=== PATIENT | female | born 1980 | race Asian ===

== ENCOUNTER 2020-10-13 09:26 | Emergency (ER) | payer OTHER, SELFPAY ==
[2020-10-13 10:57] VITALS: BP 120/72; PULSE 79; RESP 18; TEMP 36.8; O2SAT 98; BMI 21.2
[2020-10-13] MEDS: 0.9 % Sodium Chloride 1,000 ML 999 ML IVCONT (11:45)
[2020-10-13 11:51] LABS: MANUAL DIFF FLAG NO
--- NOTE | 2020-10-13 11:52 | PC.NURSE ---
patient a&ox3, iv inserted, labs drawn, covid swab obtained, pt ambulated to bathroom-urine obtained, ivf hung per order, vss, will continue to monitor.
[2020-10-13 11:53] LABS: Glucose Urine UA NEG (NEG); Leukocyte Esterase Urine 2+ (NEG); Nitrite Urine NEG (NEG); UACC Culture Trigger YES; Urine Blood TRACE (NEG); Urine Ketones NEG (NEG); Urine Protein NEG (NEG-TRACE)
[2020-10-13 11:54] LABS: Appearance Urine HAZY; Color Urine STRAW
[2020-10-13 11:59] LABS: Basophils Percent Auto 0.8 % (0-2); Eosinophils Absolute Auto 0.1 X10*3/uL (0.0-0.4); Hematocrit 34.1 % (37-47); Hemoglobin 10.3 g/dl (12.0-16.0); Imm Gran Abs Auto 0.01 X10*3/uL (0.00-0.03); Imm Gran Pct Auto 0.2 % (0.0-0.4); Lymphocytes Absolute Auto 1.4 X10*3/uL (1.2-4.9); Mean Corpuscular HGB Conc 30.2 g/dl (31.0-35.0); Mean Corpuscular Hemoglobin 21.5 pg (27.0-33.0); Monocytes Absolute Auto 0.5 X10*3/uL (0.1-1.2); Monocytes Percent Auto 10.4 % (2-11); Neutrophils Absolute Auto 2.9 X10*3/uL (2.0-8.3); Neutrophils Percent Auto 58.6 % (45-73); Platelet Count 249 X10*3/uL (160-400); Red Cell Distribution Width 16.9 % (11.0-16.0); White Blood Count 4.9 X10*3/uL (4.8-10.8)
--- NOTE | 2020-10-13 12:00 | ED.GENADULT ---
HPI - General Adult General Chief complaint: General Medical Stated complaint: weakness Time Seen by Provider: 10/13/20 11:07 Source: patient Mode of arrival: ambulatory Limitations: no limitations History of Present Illness HPI narrative: 40 y/o female presenting with nausea, intermittent vomiting and diarrhea for the the last 1 week. She also reports low grade fevers at home, headaches and dizziness. She has intermittent LLQ cramping pain. She denies blood in her stool. She denies chance of . LMP 1 month ago. No known sick contacts. Works from home, no exposure to COVID-19. complaint: N/V/D Onset (ago): week(s) (1) Location: head and abdomen Radiation: non-radiation Severity: moderate Quality: aching Pain Consistency: intermittent Exacerbating factors: eating Associated symptoms: fever/chills, headaches, loss of appetite, malaise and weakness Treatments prior to arrival: none Related Data Previous Rx's Medication Instructions Recorded cefuroxime axetil 250 mg PO BID #10 tab 10/13/20 ondansetron HCl [Zofran] 4 mg PO Q8H PRN #10 tab 10/13/20 Allergies Allergy/AdvReac Type Severity Reaction Status Date / Time No Known Allergies Allergy Verified 10/13/20 10:57 Review of Systems Review of Systems: Constitutional: + Fever, No Chills ENT/Mouth: No sore throat Cardiovascular: No Chest Pain, No SOB Respiratory: No Cough, No Sputum Gastrointestinal: + Nausea, + Vomiting, No Diarrhea, No abdominal Pain, No Hematochezia, No Melena Genitourinary: No Dysuria, No Urinary Frequency, No Hematuria Musculoskeletal: No joint pain, No Myalgias Skin: No Skin Lesions, No rash Neuro: No Weakness, No Numbness, + Dizziness, + Headache Heme/Lymph: No Bruising, No Lymphadenopathy PMFSH Past Medical History Medical History (Updated 10/13/20 @ 12:56 by MARI Sosa) No significant past medical history Social History Social History Alcohol intake: never Smoking Status: Never smoker Use of substances other than those prescribed or required for medical reasons: No Advance Directives: No Advance Directives Information Provided: No Physical Exam Vital Signs: Vital Signs: Last Vital Signs Temp 98.3 F 10/13/20 10:57 Pulse 79 10/13/20 10:57 Resp 18 10/13/20 10:57 BP 120/72 10/13/20 10:57 Pulse Ox 98 10/13/20 10:57 Body Mass Index 21.2 Appearance: Alert. Oriented X3. No acute distress. Eyes: Pupils equal, round and reactive to light. ENT: Pharynx normal. Neck: Normal inspection. Neck supple. CVS: Normal heart rate and rhythm. Pulses normal. Respiratory: No respiratory distress. Breath sounds normal. Abdomen: Soft with mild LLQ tenderness to deep palpation. hyperactive BS x4. Skin: Skin warm and dry. Normal skin color. Normal skin turgor. No rashes. Extremities: No lower extremity edema. Neuro: Oriented X 3. No motor deficit. No sensory deficit. Course Course Course Narrative: 40 y/o presenting with 1 week of N/V/D and intermittent LLQ pain. Minimal tenderness on exam. Low suspicion for diverticulitis. She appears well. VSS. Will check labs, urine, test and COVID swab. Will hydrate with IVF. Reevaluation(s) Reevaluation #1: UA positive for infection - will treat with dose of Rocephin while awaiting other lab work. Not septic. No leukocytosis, tachycardia or fever. Reevaluation #2: Lab workup unremarkable aside from +UA. Feels improved after IVF. Will treat UTI with Ceftin. Stable for d/c. Warning signs discussed to prompt return to ER. Medical Decision Making Lab Data Result diagrams: 10/13/20 11:44 10/13/20 11:44 Labs: Lab Results 10/13/20 10/13/20 10/13/20 Range/Units 11:44 11:44 11:44 WBC 4.9 (4.8-10.8) X10*3/uL RBC 4.80 (4.20-5.50) X10*6/uL Hgb 10.3 L (12.0-16.0) g/dl Hct 34.1 L (37-47) % MCV 71.0 L (80-98) fL MCH 21.5 L (27.0-33.0) pg MCHC 30.2 L (31.0-35.0) g/dl RDW 16.9 H (11.0-16.0) % Plt Count 249 (160-400) X10*3/uL MPV Not Reportable Immature Gran % (Auto) 0.2 (0.0-0.4) % Neut % (Auto) 58.6 (45-73) % Lymph % (Auto) 29.0 (20-40) % [place] % (Auto) 10.4 (2-11) % Eos % (Auto) 1.0 (0-4) % Baso % (Auto) 0.8 (0-2) % Lymph # (Auto) 1.4 (1.2-4.9) X10*3/uL [place] # (Auto) 0.5 (0.1-1.2) X10*3/uL Eos # (Auto) 0.1 (0.0-0.4) X10*3/uL Baso # (Auto) 0.0 (0.0-0.2) X10*3/uL Abs Immat Gran (auto) 0.01 (0.00-0.03) X10*3/uL Absolute Neuts (auto) 2.9 (2.0-8.3) X10*3/uL Absolute Nucleated RBC 0.000 (0.0-0.012) X10*3/uL Nucleated RBC % (auto) 0.0 (0.0-0.2) /100WBC Hold Blue Top SEE NOTE Sodium 139 (135-145) mmol/L Potassium 4.0 (3.3-5.1) mmol/l Chloride 106 (96-108) mmol/L Carbon Dioxide 26 (22-29) mmol/L Anion Gap 11 L (12-20) BUN 13 (9-16) mg/dL Creatinine 0.74 (0.5-1.4) mg/dL Estim Creat Clear Calc 83.6 Estimated GFR > 60 Random Glucose 82 (60-115) mg/dL Calcium 9.1 (8.4-10.2) mg/dL Magnesium 2.4 (1.6-2.6) mg/dL Total Bilirubin 0.3 (0.0-1.0) mg/dL Direct Bilirubin < 0.2 (0.0-0.5) mg/dL AST 19 (5-31) U/L ALT 19 (0-31) U/L Alkaline Phosphatase 61 (39-117) U/L Total Protein 7.8 (6.5-8.0) g/dL Albumin 4.6 (3.5-5.0) g/dL Lipase 48 (8-78) U/L Urine Color Urine Appearance Urine pH (5.0-8.0) Ur Specific [place] (1.005-1.025) Urine Protein (NEG-TRACE) MG/DL Urine Glucose (UA) (NEG) MG/DL Urine Ketones (NEG) MG/DL Urine Blood (NEG) Urine Nitrite (NEG) Ur Leukocyte Esterase (NEG) Urine RBC (0) /HPF Urine WBC (0-4) /HPF Ur Squamous Epith Cells /LPF Urine Bacteria /LPF Urine Test (NEGATIVE) Coronavirus (PCR) (Negative) Influenza Type A (PCR) (Negative) Influenza Type B (PCR) (Negative) RSV RNA Qual (PCR) (Negative) 10/13/20 10/13/20 Range/Units 11:44 11:44 WBC (4.8-10.8) X10*3/uL RBC (4.20-5.50) X10*6/uL Hgb (12.0-16.0) g/dl Hct (37-47) % MCV (80-98) fL MCH (27.0-33.0) pg MCHC (31.0-35.0) g/dl RDW (11.0-16.0) % Plt Count (160-400) X10*3/uL MPV Immature Gran % (Auto) (0.0-0.4) % Neut % (Auto) (45-73) % Lymph % (Auto) (20-40) % [place] % (Auto) (2-11) % Eos % (Auto) (0-4) % Baso % (Auto) (0-2) % Lymph # (Auto) (1.2-4.9) X10*3/uL [place] # (Auto) (0.1-1.2) X10*3/uL Eos # (Auto) (0.0-0.4) X10*3/uL Baso # (Auto) (0.0-0.2) X10*3/uL Abs Immat Gran (auto) (0.00-0.03) X10*3/uL Absolute Neuts (auto) (2.0-8.3) X10*3/uL Absolute Nucleated RBC (0.0-0.012) X10*3/uL Nucleated RBC % (auto) (0.0-0.2) /100WBC Hold Blue Top Sodium (135-145) mmol/L Potassium (3.3-5.1) mmol/l Chloride (96-108) mmol/L Carbon Dioxide (22-29) mmol/L Anion Gap (12-20) BUN (9-16) mg/dL Creatinine (0.5-1.4) mg/dL Estim Creat Clear Calc Estimated GFR Random Glucose (60-115) mg/dL Calcium (8.4-10.2) mg/dL Magnesium (1.6-2.6) mg/dL Total Bilirubin (0.0-1.0) mg/dL Direct Bilirubin (0.0-0.5) mg/dL AST (5-31) U/L ALT (0-31) U/L Alkaline Phosphatase (39-117) U/L Total Protein (6.5-8.0) g/dL Albumin (3.5-5.0) g/dL Lipase (8-78) U/L Urine Color STRAW Urine Appearance HAZY Urine pH 7.0 (5.0-8.0) Ur Specific [place] 1.010 (1.005-1.025) Urine Protein NEG (NEG-TRACE) MG/DL Urine Glucose (UA) NEG (NEG) MG/DL Urine Ketones NEG (NEG) MG/DL Urine Blood TRACE (NEG) Urine Nitrite NEG (NEG) Ur Leukocyte Esterase 2+ H (NEG) Urine RBC 1-4 (0) /HPF Urine WBC 10-14 H (0-4) /HPF Ur Squamous Epith Cells 2+ /LPF Urine Bacteria 1+ /LPF Urine Test NEGATIVE (NEGATIVE) Coronavirus (PCR) NEGATIVE (Negative) Influenza Type A (PCR) NEGATIVE (Negative) Influenza Type B (PCR) NEGATIVE (Negative) RSV RNA Qual (PCR) NEGATIVE (Negative) Discharge Plan Discharge Clinical Impression: UTI (urinary tract infection) Qualifiers: Urinary tract infection type: acute cystitis Hematuria presence: without hematuria Qualified Code(s): N30.00 - Acute cystitis without hematuria Patient Disposition: Home, Self-Care Instructions: Urinary Tract Infection in Women (ED) Additional Instructions: Your lab workup today was unremarkable today. Your urine test is consistent with infection and you are being started on antibiotics for this. Take the prescribed nausea medication as need. Stay hydrated, drink plenty of water. Follow up with your doctor next week. If you develop worsening pain, worsening nausea and vomiting come back to the ER for further evaluation. Prescriptions: New cefuroxime axetil 250 mg tablet 250 mg PO BID Qty: 10 RF: 0 ondansetron HCl [Zofran] 4 mg tablet 4 mg PO Q8H PRN (Reason: nausea and vomiting) Qty: 10 RF: 0 Stand Alone Forms: Work/School Release
[2020-10-13 12:09] LABS: Bacteria Urine 1+ /LPF; Squamous Epithelial Cell Urine 2+ /LPF
[2020-10-13 12:25] LABS: UPreg QC Valid YES; Urine Pregnancy NEGATIVE (NEGATIVE)
[2020-10-13 12:27] LABS: Alanine Aminotransferase 19 U/L (0-31); Albumin Level 4.6 g/dL (3.5-5.0); Alkaline Phosphatase 61 U/L (39-117); Anion Gap 11 (12-20); Aspartate Amino Transferase 19 U/L (5-31); Bilirubin Direct < 0.2 mg/dL (0.0-0.5); Bilirubin Total 0.3 mg/dL (0.0-1.0); Blood Urea Nitrogen 13 mg/dL (9-16); Calcium 9.1 mg/dL (8.4-10.2); Carbon Dioxide 26 mmol/L (22-29); Chloride 106 mmol/L (96-108); Creatinine Clr Calc Pharmacy 83.6; Estimated Glomerular Filt Rate > 60; Glucose Random 82 mg/dL (60-115); Lipase 48 U/L (8-78); Magnesium 2.4 mg/dL (1.6-2.6); Sodium 139 mmol/L (135-145); Total Protein 7.8 g/dL (6.5-8.0)
[2020-10-13] MEDS: cefTRIAXone sodium 1 GM in 0.9 % Sodium Chloride 50 ML IV (12:28)
--- NOTE | 2020-10-13 12:28 | PC.NURSE ---
iv antibiotics given per order
[2020-10-13 12:31] LABS: Influenza A PCR NEGATIVE (Negative); Influenza B PCR NEGATIVE (Negative); Resp Syncy Virus RNA Qual PCR NEGATIVE (Negative); SARS COV2 PCR INHOUSE NEGATIVE (Negative)
== END 2020-10-13 13:05 | disposition home or self-care (01) ==
PROVIDERS: Physician Assistant; Emergency Provider Internal Medicine; PCP Nurse Practitioner Family
DX: N30.00 Acute cystitis without hematuria (principal); Z20.822 Contact with and (suspected) exposure to COVID-19; R11.2 Nausea with vomiting, unspecified
CPT/HCPCS: 0241U; 36415; 80048; 80076; 81001; 81003; 81025; 83690; 83735; 85025; 87086; 96361; 96365; 99284; J0696

== ENCOUNTER 2021-06-27 18:36 | Emergency (ER) | payer OTHER, SELFPAY ==
--- NOTE | ~2021-06-27 | CT_ITS ---
EXAMINATION: CT ABDOMEN AND PELVIS WITH CONTRAST CLINICAL INFORMATION: Right lower quadrant/right flank pain. Fever. COMPARISON: None TECHNIQUE: Multidetector volumetric images were obtained from the superior aspect of the liver through the pubic symphysis following administration 85 mL of Omnipaque 350 intravenous contrast. Sagittal and coronal reformatted images were obtained on the technologist's workstation. Oral contrast: No This CT examination was performed using dose optimization techniques as appropriate, variously including the following: *Automated exposure control *Adjustment of mA and/or kV according to patient size (this includes techniques or standardized protocols for targeted exams where dose is matched to indication/reason for exam; i.e. extremities or head) *Use of iterative reconstruction technique DLP: 330 mGy-cm FINDINGS: LUNG BASES: The visualized lung bases are unremarkable. LIVER, GALLBLADDER, AND BILIARY TREE: The liver is normal in size, shape, and attenuation. No focal hepatic lesion or biliary ductal dilatation is present. The gallbladder is unremarkable with no evidence of radiopaque gallstones, gallbladder wall thickening, or obvious pericholecystic inflammatory changes. PANCREAS: Unremarkable. SPLEEN: Unremarkable. ADRENAL GLANDS: Unremarkable. KIDNEYS AND URETERS: The kidneys are normal in size, shape, and attenuation. No hydronephrosis, hydroureter, or calculi seen. No perinephric stranding. Left midpole simple renal cyst. No follow-up imaging recommended. BLADDER: Unremarkable. GASTROINTESTINAL TRACT: The stomach is unremarkable. Normal caliber small bowel. There is no ascites. Prominent wall thickening of the cecum. This involves the ascending colon as well. The appendix is identified, normal in size measuring 0.7 cm with small amount of internal gas. No inflammatory changes of the appendix. Mild inflammation along the course of the ascending colon. No free air. No significant free fluid. ABDOMINAL WALL: No significant hernia is appreciated. LYMPH NODES: Normal. VASCULAR: Unremarkable. PELVIC VISCERA: The uterus and adnexa are unremarkable. OSSEOUS STRUCTURES: No acute or suspicious osseous abnormality. CT/CT abdomen pelvis w con IMPRESSION: Normal appendix. Wall thickening with adjacent inflammation involving the right hemicolon, suggestive of colitis. Normal appearance of the kidneys.
[2021-06-27 19:49] VITALS: BP 99/66; PULSE 111; RESP 20; TEMP 39; O2SAT 99; BMI 19.1
[2021-06-27] MEDS: Acetaminophen 325 MG TABLET 650 MG PO (19:57)
[2021-06-27] MEDS: Ondansetron ODT 4 MG TAB.RAPDIS TRANSLINGU (19:57)
[2021-06-27 20:47] LABS: Influenza A PCR NEGATIVE (Negative); Influenza B PCR NEGATIVE (Negative); Resp Syncy Virus RNA Qual PCR NEGATIVE (Negative); SARS COV2 PCR INHOUSE NEGATIVE (Negative)
[2021-06-27 22:25] VITALS: TEMP 37.2
[2021-06-27 22:55] LABS: Basophils Percent Auto 0.2 % (0-2); Red Cell Distribution Width 17.8 % (11.0-16.0); SCAN SMEAR FLAG 1
[2021-06-27 22:57] LABS: Hematocrit 29.9 % (37-47); Imm Gran Abs Auto 0.05 X10*3/uL (0.00-0.03); Imm Gran Pct Auto 0.5 % (0.0-0.4); Lymphocytes Absolute Auto 1.2 X10*3/uL (1.2-4.9); Lymphocytes Percent Auto 12.2 % (20-40); Mean Corpuscular HGB Conc 30.1 g/dl (31.0-35.0); Mean Corpuscular Hemoglobin 19.9 pg (27.0-33.0); Mean Corpuscular Volume 66.2 fL (80-98); Monocytes Absolute Auto 0.6 X10*3/uL (0.1-1.2); Monocytes Percent Auto 5.7 % (2-11); Neutrophils Absolute Auto 7.9 X10*3/uL (2.0-8.3); Neutrophils Percent Auto 81.4 % (45-73); Platelet Count 197 X10*3/uL (160-400); Red Blood Count 4.52 X10*6/uL (4.20-5.50); White Blood Count 9.7 X10*3/uL (4.8-10.8)
[2021-06-27 22:59] LABS: MANUAL DIFF FLAG NO; PLT ABN DIST 1
[2021-06-27 23:07] LABS: Anion Gap 12 (12-20); Blood Urea Nitrogen 10 mg/dL (9-16); Calcium 9.4 mg/dL (8.4-10.2); Carbon Dioxide 23 mmol/L (22-29); Chloride 102 mmol/L (96-108); Creatinine Clr Calc Pharmacy 79.5; Estimated Glomerular Filt Rate > 60; Glucose Random 110 mg/dL (60-115); Potassium 3.9 mmol/L (3.3-5.1); Sodium 133 mmol/L (135-145)
--- NOTE | 2021-06-28 02:06 | ED_ITS ---
HPI - General Adult General Chief complaint: General Medical Stated complaint: high fever, back pains, abd pain Time Seen by Provider: 06/28/21 01:52 Source: patient Mode of arrival: ambulatory Limitations: no limitations History of Present Illness HPI narrative: 41-year-old female who presents emergency department for evaluation of fever, back pain and abdominal pain. Patient states that she got sick on Friday (3 days prior to evaluation). She states that she has had high fever with a maximum temperature of a 102? F. she states that she is having pain in her entire back with the right lower back being more severe than the left lower back. She is also complaining pain in her abdomen. She points to her p serena umbilical area when asked to localize the pain. The pain is a intermittent, sharp pain which is 8/10 at its worst. The patient has had associated nausea with no vomiting. She states that she has been moving her bowels frequently but these are formed stool in not diarrhea. She denied urinary frequency or dysuria. She denied chest pain, shortness of breath, dyspnea on exertion or cough. Related Data Previous Rx's Medication Instructions Recorded cefuroxime axetil 250 mg tablet 250 mg PO BID #10 tab 10/13/20 ondansetron HCl 4 mg tablet 4 mg PO Q8H PRN #10 tab 10/13/20 (Zofran) levofloxacin 500 mg tablet 500 mg PO DAILY 7 Days #7 tab 06/28/21 metronidazole 500 mg tablet 500 mg PO Q8H 7 Days #21 tab 06/28/21 Allergies Allergy/AdvReac Type Severity Reaction Status Date / Time No Known Allergies Allergy Verified 10/13/20 10:57 Review of Systems Review of Systems: Yes all other systems are reviewed and are negative [facility] Past Medical History [facility] Narrative: Past medical history: Pyelonephritis. Past surgical history: Bilateral tubal ligation 2013. Social history: She denies tobacco use. She denies alcohol use. She denies drug use. Medical History No significant past medical history Social History Social History Alcohol intake: never Patient Tobacco Use Status: Never used Tobacco Use of substances other than those prescribed or required for medical reasons: No Advance Directives: No Advance Directives Information Provided: No Patient : No Physical Exam Vital Signs: Vital Signs: Last Vital Signs Temp 98.9 F 06/27/21 22:25 Pulse 111 H 06/27/21 19:49 Resp 20 06/28/21 03:04 BP 99/66 06/27/21 19:49 Pulse Ox 99 06/27/21 19:49 Body Mass Index 19.1 Const: General: cooperative and no acute distress Orientation/consciousness: oriented to person and oriented to place Limitations: no limitations HENMT: Head: Yes normal to inspection, Yes normocephalic and Yes atraumatic Ears: external ears normal General nose exam: Normal external nose present Face and sinus: Yes normal facial exam Mouth: Normal oral and palatal mucosa present Throat: Yes posterior oropharynx normal Eyes: General: appearance normal, both eyes and all related structures Pupils: Equal, round and reactive pupils present Neck: Neck: Yes normal visual inspection, Yes no lymphadenopathy, Yes trachea midline and Yes supple Chest: Chest palpation & inspection: normal inspection of the chest and normal palpation of entire chest wall Resp: Effort & Inspection: normal respiratory effort and able to speak in complete sentences Auscultation: clear to auscultation bilaterally Cardio: Rate: regular rate Rhythm: regular rhythm Heart sounds: S1 normal heart sound present, S2 normal heart sound present and no murmurs GI: Inspection: Yes normal to inspection Palpation (GI): Soft to palpation, Tenderness to palpation present (GI) in the RLQ (Moderate) and suprapubicly (Moderate) and no guarding Auscultation: normal bowel sounds : General: Yes CVA tenderness on the right (Moderate) and on the left (Mild) Back/Spine/Pelvis: Back: CVA tenderness Skin: General skin exam: no rashes or lesions noted Neuro: General: oriented to person and oriented to place Cranial nerves: Yes CN's II-XII intact bilaterally and Yes Equal, round and reactive pupils present Cognition (Neuro): normal cognition Motor exam (neuro): 5/5 motor strength present throughout Extrem: General: Yes normal to inspection Psych: Appearance: grossly normal Speech and movement: Normal speech and movement present Affect: normal affect Attitude: cooperative Thought process: Normal thought process present Thought content: Normal thought c ontent present Course Course Course Narrative: 41-year-old female who presents emergency department for evaluation of fever, bilateral flank pain, lower abdominal times 3 days. Vital signs revealed a fever of 102.2? F orally. Patient was also tachycardic with a pulse of 111. Physical examination did reveal bilateral flank tenderness- right greater than left, suprapubic tenderness and right lower quadrant tenderness. Laboratory evaluation revealed normal white blood cell count of 9700, the patient has a microcytic anemia with an H&H of 9 and 29 with MCV of 66.2. Basic metabolic panel was normal. After my evaluation I did add a liver panel and lipase to the previous blood draw. I also ordered lactic acid and blood cultures x2. Urinalysis/microscopic was also ordered. Patient did have a bilateral tubal ligation but I will check a urine test as well. CT scan of the abdomen pelvis with IV contrast will also be obtained. Patient was ordered to get Toradol 30 mg IV and Zofran 4 mg IV. She also ordered to get normal saline x1 L. 0421: The patient got minimal relief with the above medications therefore she was ordered to get morphine 4 mg IV. The patient's laboratory evaluation revealed normal LFTs, non elevated lipase, non elevated lactate, urinalysis which was positive for blood and leukocyte esterase. Microscopic revealed 5-9 RBCs, 10-14 WBCs and 2+ urea. CT scan of the abdomen pelvis with IV contrast revealed a normal appendix. The patient had wall thickening with adjacent inflammation involving the right denise colon suggestive of colitis, the kidneys appeared normal. Given these findings, I suspect the patient does have a urinary tract infection but she may also have right sided colitis I did discuss this with the patient. The patient will be treated with Levaquin 500 mg once a day for 7 days and Flagyl 500 mg 3 times a day for 7 days. She was advised to take ibuprofen and Tylenol for pain. She was given her 1st dose of these 2 antibiotics here in the emergency department. She was discharged home. Medical Decision Making Lab Data Result diagrams: 06/27/21 22:30 06/27/21 22:30 Labs: Lab Results 06/27/21 06/27/21 06/27/21 Range/Units 19:55 22:30 22:30 WBC 9.7 (4.8-10.8) X10*3/uL RBC 4.52 (4.20-5.50) X10*6/uL Hgb 9.0 L (12.0-16.0) g/dl Hct 29.9 L (37-47) % MCV 66.2 L (80-98) fL MCH 19.9 L (27.0-33.0) pg MCHC 30.1 L (31.0-35.0) g/dl RDW 17.8 H (11.0-16.0) % Plt Count 197 (160-400) X10*3/uL MPV Not Reportable Immature Gran % (Auto) 0.5 H (0.0-0.4) % Neut % (Auto) 81.4 H (45-73) % Lymph % (Auto) 12.2 L (20-40) % [place] % (Auto) 5.7 (2-11) % Eos % (Auto) 0.0 (0-4) % Baso % (Auto) 0.2 (0-2) % Lymph # (Auto) 1.2 (1.2-4.9) X10*3/uL [place] # (Auto) 0.6 (0.1-1.2) X10*3/uL Eos # (Auto) 0.0 (0.0-0.4) X10*3/uL Baso # (Auto) 0.0 (0.0-0.2) X10*3/uL Abs Immat Gran (auto) 0.05 H (0.00-0.03) X10*3/uL Absolute Neuts (auto) 7.9 (2.0-8.3) X10*3/uL Absolute Nucleated RBC 0.000 (0.0-0.012) X10*3/uL Nucleated RBC % (auto) 0.0 (0.0-0.2) /100WBC Sodium 133 L (135-145) mmol/L Potassium 3.9 (3.3-5.1) mmol/L Chloride 102 (96-108) mmol/L Carbon Dioxide 23 (22-29) mmol/L Anion Gap 12 (12-20) BUN 10 (9-16) mg/dL Creatinine 0.72 (0.5-1.4) mg/dL Estim Creat Clear Calc 79.5 Estimated GFR > 60 Random Glucose 110 (60-115) mg/dL Lactic Acid (0.5-2.0) mmol/L Calcium 9.4 (8.4-10.2) mg/dL Total Bilirubin 0.3 (0.0-1.0) mg/dL Direct Bilirubin < 0.2 (0.0-0.5) mg/dL AST 23 (5-31) U/L ALT 27 (0-31) U/L Alkaline Phosphatase 63 (39-117) U/L Total Protein 7.4 (6.5-8.0) g/dL Albumin 4.3 (3.5-5.0) g/dL Lipase 24 (8-78) U/L Beta HCG, Quant < 2 mIU/mL Urine Color Urine Appearance Urine pH (5.0-8.0) Ur Specific [place] (1.005-1.025) Urine Protein (NEG-TRACE) MG/DL Urine Glucose (UA) (NEG) MG/DL Urine Ketones (NEG) MG/DL Urine Blood (NEG) Urine Nitrite (NEG) Ur Leukocyte Esterase (NEG) Urine RBC (0) /HPF Urine WBC (0-4) /HPF Ur Squamous Epith Cells /LPF Amorphous Sediment /LPF Urine Bacteria /LPF Urine Mucus /LPF Urine Test (NEGATIVE) Coronavirus (PCR) NEGATIVE (Negative) Influenza Type A (PCR) NEGATIVE (Negative) Influenza Type B (PCR) NEGATIVE (Negative) RSV RNA Qual (PCR) NEGATIVE (Negative) 06/28/21 06/28/21 06/28/21 Range/Units 02:32 02:32 02:32 WBC (4.8-10.8) X10*3/uL RBC (4.20-5.50) X10*6/uL Hgb (12.0-16.0) g/dl Hct (37-47) % MCV (80-98) fL MCH (27.0-33.0) pg MCHC (31.0-35.0) g/dl RDW (11.0-16.0) % Plt Count (160-400) X10*3/uL MPV Immature Gran % (Auto) (0.0-0.4) % Neut % (Auto) (45-73) % Lymph % (Auto) (20-40) % [place] % (Auto) (2-11) % Eos % (Auto) (0-4) % Baso % (Auto) (0-2) % Lymph # (Auto) (1.2-4.9) X10*3/uL [place] # (Auto) (0.1-1.2) X10*3/uL Eos # (Auto) (0.0-0.4) X10*3/uL Baso # (Auto) (0.0-0.2) X10*3/uL Abs Immat Gran (auto) (0.00-0.03) X10*3/uL Absolute Neuts (auto) (2.0-8.3) X10*3/uL Absolute Nucleated RBC (0.0-0.012) X10*3/uL Nucleated RBC % (auto) (0.0-0.2) /100WBC Sodium (135-145) mmol/L Potassium (3.3-5.1) mmol/L Chloride (96-108) mmol/L Carbon Dioxide (22-29) mmol/L Anion Gap (12-20) BUN (9-16) mg/dL Creatinine (0.5-1.4) mg/dL Estim Creat Clear Calc Estimated GFR Random Glucose (60-115) mg/dL Lactic Acid 1.3 (0.5-2.0) mmol/L Calcium (8.4-10.2) mg/dL Total Bilirubin (0.0-1.0) mg/dL Direct Bilirubin (0.0-0.5) mg/dL AST (5-31) U/L ALT (0-31) U/L Alkaline Phosphatase (39-117) U/L Total Protein (6.5-8.0) g/dL Albumin (3.5-5.0) g/dL Lipase (8-78) U/L Beta HCG, Quant mIU/mL Urine Color YELLOW Urine Appearance HAZY Urine pH 6.5 (5.0-8.0) Ur Specific [place] 1.010 (1.005-1.025) Urine Protein NEG (NEG-TRACE) MG/DL Urine Glucose (UA) NEG (NEG) MG/DL Urine Ketones 15 (NEG) MG/DL Urine Blood 2+ H (NEG) Urine Nitrite NEG (NEG) Ur Leukocyte Esterase 1+ H (NEG) Urine RBC 5-9 H (0) /HPF Urine WBC 10-14 H (0-4) /HPF Ur Squamous Epith Cells 1+ /LPF Amorphous Sediment 2+ /LPF Urine Bacteria 2+ /LPF Urine Mucus 2+ /LPF Urine Test NEGATIVE (NEGATIVE) Coronavirus (PCR) (Negative) Influenza Type A (PCR) (Negative) Influenza Type B (PCR) (Negative) RSV RNA Qual (PCR) (Negative) Discharge Plan Discharge Clinical Impression: Right sided colitis UTI (urinary tract infection) Qualifiers: Urinary tract infection type: acute cystitis Hematuria presence: with hematuria Qualified Code(s): N30.01 - Acute cystitis with hematuria Patient Disposition: Home, Self-Care Instructions: Urinary Tract Infection in Women (ED), Colitis (ED) Additional Instructions: Your laboratory evaluation was unremarkable. Your urinalysis and microscopic evaluation did reveal red blood cells and white blood cells in urine as well as bacteria. This is consistent with a urinary tract infection. The CT scan of your abdomen pelvis with IV contrast revealed inflammation of the right side of your colon (colitis). Your kidneys and appendix appeared normal. At this time I believe you have both a urinary tract infection and colitis. I am going to treat you with 2 antibiotics that we treat both of these infections. Take Levaquin 500 mg pills, 1 pill once a day for 7 days. You received her 1st dose here in the emergency department and you can take your next dose tomorrow morning, Friday06/29/2021 Take Flagyl (metronidazole) 500 mg pills, 1 pill every 6 hours while you are awake (3 times a day) for 7 days. Your given your 1st pill here in the emergency department, take your next pill 6 hours later. Take ibuprofen 200 mg pills, 2 pills every 6 hours as needed for pain. Take Tylenol (acetaminophen) 500 mg pills, 2 pills every 4 to 6 hours as needed for pain. Follow-up with your doctor in 2-4 days. Please return to the emergency department if your symptoms get worse or if you develop any symptoms that are concerning to you. No work for 1 week. Prescriptions: New levofloxacin 500 mg tablet 500 mg PO DAILY 7 Days Qty: 7 RF: 0 metronidazole 500 mg tablet 500 mg PO Q8H 7 Days Qty: 21 RF: 0 No Action cefuroxime axetil 250 mg tablet 250 mg PO BID Qty: 10 RF: 0 ondansetron HCl [Zofran] 4 mg tablet 4 mg PO Q8H PRN (Reason: nausea and vomiting) Qty: 10 RF: 0 Stand Alone Forms: Work/School Release
[2021-06-28 02:22] LABS: Alanine Aminotransferase 27 U/L (0-31); Albumin Level 4.3 g/dL (3.5-5.0); Alkaline Phosphatase 63 U/L (39-117); Aspartate Amino Transferase 23 U/L (5-31); Bilirubin Direct < 0.2 mg/dL (0.0-0.5); Bilirubin Total 0.3 mg/dL (0.0-1.0); Lipase 24 U/L (8-78); Total Protein 7.4 g/dL (6.5-8.0)
[2021-06-28 02:33] LABS: HCG Quantitative < 2 mIU/mL
[2021-06-28] MEDS: 0.9 % Sodium Chloride 1,000 ML 999 ML IV (02:36)
[2021-06-28] MEDS: ondansetron HCL 4 MG/2 ML VIAL IVPUSH (02:39)
[2021-06-28] MEDS: Ketorolac Tromethamine 15 MG/ML VIAL 30 MG IVPUSH (02:39)
[2021-06-28 02:49] LABS: Appearance Urine HAZY; Color Urine YELLOW; Glucose Urine UA NEG (NEG); Leukocyte Esterase Urine 1+ (NEG); Nitrite Urine NEG (NEG); PH 6.5 (5.0-8.0); UACC Culture Trigger YES; Urine Blood 2+ (NEG); Urine Ketones 15 MG/DL (NEG); Urine Protein NEG (NEG-TRACE)
[2021-06-28 02:50] LABS: UPreg QC Valid YES; Urine Pregnancy NEGATIVE (NEGATIVE)
[2021-06-28] MEDS: iohexoL 350 MG/ML 100 ML INFUS..BTL IV (02:52)
[2021-06-28 02:55] LABS: Bacteria Urine 2+ /LPF; Mucus Urine 2+ /LPF; Squamous Epithelial Cell Urine 1+ /LPF
[2021-06-28 02:56] LABS: Amorphous Sediment Urine 2+ /LPF
[2021-06-28 02:57] LABS: Lactic Acid 1.3 mmol/L (0.5-2.0)
[2021-06-28 03:04] VITALS: RESP 20
--- NOTE | 2021-06-28 03:06 | PC.NURSE ---
Iv placed, labs draw and sent. mediated Per Nov.
[2021-06-28] MEDS: metroNIDAZOLE 500 MG TABLET PO (04:37)
[2021-06-28] MEDS: levoFLOXacin 500 MG TABLET PO (04:37)
[2021-06-28 04:53] VITALS: RESP 20
== END 2021-06-28 04:55 | disposition home or self-care (01) ==
PROVIDERS: Emergency Provider Emergency Medicine Emergency Medical Services; PCP Nurse Practitioner Family
DX: N30.01 Acute cystitis with hematuria (principal); K52.9 Noninfective gastroenteritis and colitis, unspecified; D50.9 Iron deficiency anemia, unspecified; Z20.822 Contact with and (suspected) exposure to COVID-19
CPT/HCPCS: 0241U; 36415; 74177; 80048; 80076; 81001; 81025; 83605; 83690; 84702; 85025; 87040; 87086; 87147; 96361; 96374; 96375; 99284; J1885; J2405; Q9967

== ENCOUNTER 2023-06-29 16:28 | Emergency (ER) | payer OTHER, SELFPAY ==
--- NOTE | ~2023-06-29 | XR_ITS ---
EXAMINATION: XR HAND, LEFT CLINICAL INFORMATION: Fifth finger laceration, left fracture COMPARISON: None available. TECHNIQUE: PA, lateral, and oblique views of the left hand. FINDINGS: No evidence of acute fracture or malalignment. No tuft fracture identified, as clinically queried. Joint spaces are well preserved. Normal bone mineralization. Mild distal fifth digit soft tissue swelling/irregularity. XR/XR hand LT 2V IMPRESSION: 1. No evidence of acute fracture or malalignment. 2. Mild distal fifth digit soft tissue swelling/irregularity.
[2023-06-29 17:37] VITALS: BP 134/87; PULSE 77; RESP 20; TEMP 37.2; O2SAT 99; BMI 19.8
--- NOTE | 2023-06-29 17:37 | ED.GENADULT ---
HPI - General Adult General Chief complaint: Wound/Laceration Stated complaint: Cut finger left hand Time Seen by Provider: 06/29/23 18:26 Source: patient Mode of arrival: ambulatory Limitations: no limitations History of Present Illness HPI narrative: 43-year-old female right-hand dominant previously healthy, up-to-date with immunizations presents the ER with complaints of laceration to the left 5th finger from a knife which occurred while cooking. Tetanus UTD. No reports of weakness, numbness, tingling on exam. Related Data Previous Rx's Medication Instructions Recorded cefuroxime axetil 250 mg tablet 250 mg PO BID #10 tabs 10/13/20 ondansetron HCl 4 mg tablet 4 mg PO Q8H PRN nausea and 10/13/20 (Zofran) vomiting #10 tabs levofloxacin 500 mg tablet 500 mg PO DAILY 7 days #7 tabs 06/28/21 metronidazole 500 mg tablet 500 mg PO Q8H 7 days #21 tabs 06/28/21 Allergies Allergy/AdvReac Type Severity Reaction Status Date / Time No Known Allergies Allergy Verified 06/29/23 17:43 Review of Systems Review of Systems: Yes all other systems are reviewed and are negative Constitutional: Constitutional: Reports no additional constitutional complaints, Denies body ache(s), Denies chills, Denies fever(s), Denies headache(s) and Denies weakness Eyes: Eyes: Reports no additional eye complaints and Denies change in vision ENT: Reports system reviewed and no additional complaints, except as documented, Denies dizziness, Denies headache(s), Denies nasal congestion, Denies nasal discharge and Denies neck pain Cardiovascular: Cardiovascular: Reports no additional cardiovascular complaints, Denies chest pain, Denies leg edema and Denies dyspnea Respiratory: Respiratory: Reports no additional respiratory complaints, Denies cough and Denies dyspnea Gastrointestinal: Gastrointestinal: Reports no additional gastrointestinal complaints, Denies abdominal pain, Denies diarrhea, Denies nausea and Denies vomiting Genitourinary: Genitourinary: Reports no additional female genitourinary complaints and Denies urinary incontinence Musculoskeletal: Musculoskeletal: Reports no additional musculoskeletal complaints, Denies back pain, Denies arthralgias, Denies joint swelling, Denies neck pain, Denies numbness and Denies tingling Integumentary/Breasts: Skin/Breast: Reports system reviewed and no additional complaints, except as docu, Denies rash and Reports wounds Neurologic: Reports system reviewed and no additional complaints, except as documented, Denies Abnormal speech present, Denies dizziness, Denies headache(s), Denies numbness, Denies tingling and Denies weakness PMFSH Past Medical History Attestation statement: The following information was validated with the patient. Source: old records reviewed and nursing notes reviewed Medical History No significant past medical history Social History Social History Alcohol intake: never Patient Tobacco Use Status: Never used Tobacco Advance Directives: No Advance Directives Information Provided: No Physical Exam ED Vital Signs: Vital Signs - 24 hr 06/29/23 17:37 Temperature 98.9 F Pulse Rate 77 Respiratory Rate 20 Blood Pressure 134/87 Pulse Oximetry 99 Oxygen Delivery Method Room Air BMI result Body Mass Index 19.8 Const General: cooperative, healthy appearing, comfortable and no acute distress Orientation/consciousness: patient oriented x3 Limitations: no limitations HENMT Head: Yes normal to inspection Ears: hearing grossly normal bilaterally General nose exam: Normal external nose present Face and sinus: Yes normal facial exam Mouth: Normal oral and palatal mucosa present Throat: Yes posterior oropharynx normal Eyes General: appearance normal, both eyes and all related structures Pupils: Equal, round and reactive pupils present Neck Neck: Yes normal visual inspection Chest Chest palpation & inspection: normal inspection of the chest Resp Effort & Inspection: normal respiratory effort Auscultation: clear to auscultation bilaterally Cardio Rate: regular rate Rhythm: regular rhythm Peripheral pulses: Peripheral pulses 2+ throughout GI Inspection: Yes normal to inspection Palpation (GI): Soft to palpation and nontender Auscultation: normal bowel sounds Back/Spine/Pelvis Thoracic/Lumbar Spine: thoracic and lumbar spine normal to inspection Skin General skin exam: no rashes or lesions noted Neuro General: patient oriented x3, no focal motor deficits and normal sensation to monofilament Cranial nerves: Yes Equal, round and reactive pupils present Cognition (Neuro): normal cognition Speech: No Abnormal speech present Gait exam (Neuro): Normal gait present Motor exam (neuro): 5/5 motor strength present throughout Extrem General: Yes normal to inspection Hand/finger images: 1. To the distal 5th digit left hand there is a skin avulsion, bleeding controlled. Partial distal nail absent. Full active/passive ROM. Normal sensation distally. Course Course Course Narrative: ME: 43 yold female presents to the ED for left fifth finger laceration by knife at home while cooking. insepction of finger indiiates avulsion laceration. Xray ordered. Medical Decision Making Medical Decision Making MDM Narrative: 43-year-old female right-hand dominant previously healthy, up-to-date with immunizations presents the ER with complaints of laceration to the left 5th finger from a knife which occurred while cooking. Tetanus UTD. No reports of weakness, numbness, tingling on exam. On exam there is a skin avulsion. The wound was cleansed with saline. Bleeding controlled. Xeroform and a dressing were applied. WIll review hand x-ray from triage Differential Diagnosis Differential Diagnoses: The differential diagnosis associated with the presentation includes laceration, skin avulsion Independent Interpretation I performed an independent interpretation of an: Plain X-Ray Interpretation: I have indepently reviewed the x-ray and agree with rad report Radiology Impression Discussion of test interpretation with radiology: I have reviewed the radiologist's reading. Prescription Management I considered prescription management with: Antibiotic clean wound, no need for pptx antibiotics Discharge Plan Discharge Clinical Impression: Laceration Patient Disposition: Home, Self-Care Instructions: Laceration (ED) Additional Instructions: leave the dressing in place for 24-36 hours then you may gently remove it. After this wash the areas with soap and water daily. Monitor for signs of infection such as redness, drainage, odor, increased swelling or pain return for these things. Take Motrin or Tylenol for pain as needed. Prescriptions: No Action cefuroxime axetil 250 mg tablet 250 mg PO BID Qty: 10 0RF ondansetron HCl [Zofran] 4 mg tablet 4 mg PO Q8H PRN (Reason: nausea and vomiting) Qty: 10 0RF levofloxacin 500 mg tablet 500 mg PO DAILY 7 Days Qty: 7 0RF metronidazole 500 mg tablet 500 mg PO Q8H 7 Days Qty: 21 0RF Referrals: Physician,Unknown J [Primary Care Provider] - 5 days (as needed) Stand Alone Forms: Work/School Release Interventions: ED Discharge Assessment Last Done: 06/29/23 18:49 Discharge Date/Time: 06/29/23 18:49
== END 2023-06-29 18:49 | disposition home or self-care (01) ==
PROVIDERS: Emergency Provider Internal Medicine
DX: S61.217A Laceration without foreign body of left little finger without damage to nail, initial encounter (principal); W26.0XXA Contact with knife, initial encounter; Y93.9 Activity, unspecified; Y92.9 Unspecified place or not applicable; Y99.9 Unspecified external cause status; Z79.899 Other long term (current) drug therapy
CPT/HCPCS: 73120; 99282; 99283

== ENCOUNTER 2025-06-21 09:43 | Emergency (ER) | payer OTHER, SELFPAY ==
--- NOTE | ~2025-06-21 | XR_ITS ---
EXAMINATION: XR LUMBOSACRAL SPINE CLINICAL INFORMATION: midline tenderness, radiation to legs COMPARISON: None available. TECHNIQUE: Three views of the lumbosacral spine. FINDINGS: There are 5 nonrib-bearing lumbar segments. Vertebral body height and alignment is preserved. Disc spaces are preserved. There is no listhesis. XR/XR lumbar spine 2-3V IMPRESSION: Unremarkable examination. Electronically signed by: Benjamín Mckenzie MD 06/21/2025 12:45 PM EDT
[2025-06-21 09:55] VITALS: BP 130/83; PULSE 73; RESP 12; TEMP 36.8; O2SAT 98; BMI 19.9
[2025-06-21 10:22] LABS: COVID-19 Test Negative (Negative); IDNOW Serial# 6674DD1D
[2025-06-21 10:23] LABS: IDNOW Serial# 08D9AD1C; Influenza B2 Negative (Negative)
--- NOTE | 2025-06-21 12:10 | ED.GENADULT ---
HPI - General Adult General Chief complaint: Back Pain/Injury Stated complaint: Back pain Time Seen by Provider: 06/21/25 12:10 Source: patient, RN notes reviewed and old records reviewed Mode of arrival: ambulatory Limitations: no limitations History of Present Illness ED Provider: Yue [facility] narrative: Patient is a 45-year-old female presenting to the ED with complaint of lower back pain for the past 5-7 days. Denies fall or other trauma. States pain occasionally radiates to both legs. Denies urinary symptoms. Denies saddle anesthesia or bowel/bladder incontinence. Tried ibuprofen with little relief. Denies history of cancer, IVDU, fevers. MD complaint: low back pain Onset (ago): day(s) Related Data Previous Rx's ?Medication ?Instructions ?Recorded cefuroxime axetil 250 mg tablet 250 mg PO BID #10 tabs 10/13/20 ondansetron HCl 4 mg tablet 4 mg PO Q8H PRN nausea and 10/13/20 (Zofran) vomiting #10 tabs levofloxacin 500 mg tablet 500 mg PO DAILY 7 days #7 tabs 06/28/21 metronidazole 500 mg tablet 500 mg PO Q8H 7 days #21 tabs 06/28/21 lidocaine 5 % topical patch 1 patch topical DAILY #15 ea 06/21/25 naproxen 500 mg tablet 500 mg PO BID #14 tabs 06/21/25 prednisone 20 mg tablet 20 mg PO DAILY #7 tabs 06/21/25 Allergies Allergy/AdvReac Type Severity Reaction Status Date / Time No Known Allergies Allergy Verified 06/21/25 09:58 Review of Systems Review of Systems: as per hpi Yes all other systems are reviewed and are negative Constitutional: Constitutional: Reports as per HPI [facility] Past Medical History Medical History No significant past medical history Social History Social History Alcohol intake: never Patient Tobacco Use Status: Never used Tobacco Advance Directives: No Advance Directives Information Provided: Yes Physical Exam ED Vital Signs: Vital Signs - 24 hr 06/21/25 09:55 06/21/25 12:16 Temperature 98.2 F Pulse Rate 73 68 Respiratory Rate 12 16 Blood Pressure 130/83 107/61 Pulse Oximetry 98 100 Oxygen Delivery Method Room Air Room Air BMI result Body Mass Index 19.9 Vital signs have been reviewed and appear to be correct. Blood pressure normal. Heart rate normal. Respiratory rate normal. Temperature normal. Oxygen saturation normal. Const General: cooperative, healthy appearing and no acute distress Orientation/consciousness: oriented to person, oriented to place, oriented to time and patient oriented x3 Limitations: no limitations HENMT Head: Yes normocephalic and Yes atraumatic Ears: external ears normal General nose exam: Normal external nose present Face and sinus: Yes face symmetric Mouth: oropharynx normal and moist mucous membranes Throat: Yes uvula midline Eyes Pupils: Equal, round and reactive pupils present Neck Neck: Yes normal visual inspection, Yes no meningeal signs and Yes supple Resp Effort & Inspection: normal respiratory effort and able to speak in complete sentences Auscultation: clear to auscultation bilaterally Cardio Rate: regular rate Rhythm: regular rhythm Heart sounds: S1 normal heart sound present and S2 normal heart sound present GI Palpation (GI): Soft to palpation and nontender Auscultation: normoactive bowel sounds General: Yes no CVA tenderness Back/Spine/Pelvis Back: no CVA tenderness Thoracic/Lumbar Spine: thoracic and lumbar spine normal to inspection, thoraco-lumbar ROM normal, straight leg raise negative bilaterally, pain with thoraco-lumbar ROM, No thoracic spinal tenderness and lumbar spinal tenderness at L4 and at L5 Pelvis: no pain with anterior-posterior compression and no pain with lateral compression Skin General skin exam: elasticity normal and turgor normal Neuro General: oriented to person, oriented to place, oriented to time, patient oriented x3, gait normal, tone normal, moves all extremities, Normal light touch and pain sensation, no meningeal signs, no focal motor deficits, CN's II-XI intact bilaterally and deep tendon reflexes 2+ bilaterally Cranial nerves: Yes Equal, round and reactive pupils present Cognition (Neuro): normal cognition Extrem General: Yes full ROM, Yes no pedal edema and Yes no calf tenderness Psych Mental Status: mental status grossly normal Affect: normal affect Thought process: Normal thought process present Medications Administered Discontinued Medications Generic Name Dose Route Start Last Admin Trade Name Freq PRN Reason Stop Dose Admin Ketorolac Tromethamine 30 mg 06/21/25 13:49 06/21/25 14:04 Ketorolac Tromethamine 30 Mg/Ml Vial IM 06/21/25 13:50 30 mg ONCE ONE Administration Prednisone 40 mg 06/21/25 13:49 06/21/25 14:04 Prednisone 20 Mg Tablet PO 06/21/25 13:50 40 mg ONCE ONE Administration Medical Decision Making Medical Decision Making [facility] Narrative: Patient is a 45-year-old female presenting to the ED with complaint of lower back pain for the past 5-7 days. On exam patient is awake, A+Ox3, VS WNL, afebrile, normal neurological exam without focal deficits, physical exam findings as above. Given reported symptoms and physical exam findings, initial differential includes lumbar strain, lumbar radiculopathy, degenerative disc disease, disc herniation, spinal stenosis, spondylosis. Less likely vertebral fracture. Do not suspect malignancy/mass, SEA, cauda equina/cord compression. UA is without evidence of infection. X-ray lumbar spine notable for no acute fracture or listhesis. My interpretation is in agreement with the radiologist's interpretation. Results discussed with patient all questions answered. Return precautions discussed. Will treat with naproxen, prednisone and lidocaine patches. Advised follow up with PCP. Patient verbalized understanding of and agreement with plan. Differential Diagnosis Differential Diagnoses: The differential diagnosis associated with the presentation includes As per [facility] Admission/Observation Consideration of admission/observation: Escalation of care including admission/observation considered Patient would have been admitted to the hospital and transferred to appropriate facility had their clinical presentation warranted hospital admission. Lab Data [facility] Lab Attestation statement: I reviewed the patient's lab results. as per [facility] Labs: Lab Results 06/21/25 06/21/25 Range/Units 09:59 13:11 Urine Color Yellow Urine Appearance Clear Urine pH 7.0 (5.0-9.0) Ur Specific Hollis 1.010 (1.005-1.025) Urine Protein Negative (Neg-Trace) mg/dL Urine Glucose (UA) Negative (Negative) mg/dL Urine Ketones Negative (Negative) mg/dL Urine Blood Negative (Negative) Urine Nitrite Negative (Negative) Ur Leukocyte Esterase Negative (Negative) Urine Test NEGATIVE (NEGATIVE) COVID-19 (ANISHA) Negative (Negative) COVID-19 Clin Com See Note Influenza Type A (YAKELIN) Negative (Negative) Influenza Type B (YAKELIN) Negative (Negative) Influenza A & B Note See Note Independent Interpretation I performed an independent interpretation of an: Plain X-Ray Interpretation: Lumbar x-ray without evidence of acute fracture or listhesis Radiology Impression Discussion of test interpretation with radiology: I have reviewed the radiologist's reading. Radiologist Impression: Unable to access radiologist's interpretation via computer, however, read provided by [employer]. Impression: Unremarkable examination. External Record Review External record reviewed: Inpatient record, Office record and Outpatient record Prescription Management I considered prescription management with: Pain Medication and Other Discharge Plan Discharge Clinical Impression: Lumbar radiculopathy Patient Disposition: Home, Self-Care Instructions: Lumbar Radiculopathy (ED) Additional Instructions: You were evaluated in the emergency department today for lower back pain. This is likely due to an inflammation of the sciatic nerve with runs from the lower back down both legs. You are being prescribed a course of prednisone which is a steroid to decrease inflammation. You are also being prescribed naproxen which is an anti-inflammatory medication. You have been prescribed 5% topical lidocaine patches which you can wear for up to 12 hours in a 24 hour period. Do not apply heat directly over the patches. Use all medications as prescribed. Please schedule an appointment for follow-up with your primary care physician this week for further evaluation of your symptoms. Return to the emergency department if you experience worsening back pain, difficulty walking, fevers, numbness, tingling, incontinence, groin numbness or tingling, or any other concerning symptoms. Prescriptions: New prednisone 20 mg tablet 20 mg PO DAILY Qty: 7 0RF lidocaine 5 % adhesive patch,medicated 1 patch topical DAILY Qty: 15 0RF Rx Instructions: leave on most painful area for up to 12 hrs naproxen 500 mg tablet 500 mg PO BID Qty: 14 0RF No Action cefuroxime axetil 250 mg tablet 250 mg PO BID Qty: 10 0RF ondansetron HCl [Zofran] 4 mg tablet 4 mg PO Q8H PRN (Reason: nausea and vomiting) Qty: 10 0RF levofloxacin 500 mg tablet 500 mg PO DAILY 7 Days Qty: 7 0RF metronidazole 500 mg tablet 500 mg PO Q8H 7 Days Qty: 21 0RF Stand Alone Forms: Work/School Release Print Language: Tajik
[2025-06-21 12:16] VITALS: BP 107/61; PULSE 68; RESP 16; O2SAT 100
[2025-06-21 13:17] LABS: Appearance Urine Clear; Glucose Urine UA Negative (Negative); PH 7.0 (5.0-9.0); Specific Gravity - Urine 1.010 (1.005-1.025)
--- OUTSIDE RECORDS SUMMARY | 2025-06-21 13:17 | XMS_ITS | Encounter Summary ---
Author Organization [facility] Address [address] [place] [address] Care Team Providers Care Sprinkler Worker Name Role Phone Asia Marino HOGS[employer] HAND Primary Care Provider [phone] Encounter Details Date Type Department Care Team (Late st Contact Info) Description 04/14/2025 Lab Requisition [facility] - Main Lab [address] [place] [id number] Jesi Davis PA [address] [facility] [address] [place] [address] Pyuria Social History Tobacco Use Types Packs/Day Years Used Date Smoking Tobacco: Never Assessed Comments Unknown Sex and Gender Information Value Date Recorded Sex Assigned at Not on file Legal Sex Female 12:28 PM EDT Gender Identity Not on file Sexual Orientation Not on file documented as of this encounter Plan of Treatment Not on file documented as of this encounter Procedures Procedure Name Priority Date/Time Associated Diagnosis Comments BACTERIAL IDENTIFICATION AND SUSCEPTIBILITY, AEROBIC Routine 04/13/2025 12:00 AM EDT Pyuria documented in this encounter Results * Bacterial identification and susceptibility, aerobic (04/13/2025 12:00 AM EDT) Culture, Bacterial ID and Sensitivity Multiple bacterial morphotypes present consistent with either contamination or urogenital alex. Suggest repeat specimen, if clinically indicated. 04/14/2025 1:26 PM EDT [facility] Other Topography unknown / Unknown 04/13/2025 04/14/2025 1:04 PM EDT us Jesi [facility] MICROBIOLOGY - GENERAL ORDER JEANNA Final Result [facility] [address] [place] [address], documented in this encounter Visit Diagnoses Diagnosis Pyuria Other nonspecific finding on examination of urine documented in this encounter Care Teams Sprinkler Worker Relationship Specialty Start Date End Date Asia Marino NP [address] [place] [address] [address] [place] [id number] PCP - General Nurse Practitioner 04/14/25 documented as of this encounter
--- OUTSIDE RECORDS SUMMARY | 2025-06-21 13:17 | XMS_ITS | Clinical Summary ---
Author Organization [address] [facility] Address [address] [place] [address] Phone Care Team Providers Care Underwriting Sales Representative Name Role Phone RickyAsia roper Tessy FIRMWARE TEST ENGINEER Primary Care Provider [phone] Encounters Date Type Department Care Team Description 04/14/2025 Lab Requisition [facility] - Main Lab [address] [facility] [place] [address] Jesi Davis PA Pyuria from Last 3 Months Social History Tobacco Use Types Packs/Day Years Used Date Smoking Tobacco: Never Assessed Comments Unknown Sex and Gender Information Value Date Recorded Sex Assigned at Not on file Legal Sex Female 12:28 PM EDT Gender Identity Not on file Sexual Orientation Not on file Plan of Treatment Health Maintenance Due Date Last Done Comments Breast Cancer Screening 1980 DTaP,Tdap,and Td Vaccines (1 - Tdap) 1999 Hepatitis B Vaccines (1 of 3 - 19+ 3-dose series) 1999 Cervical Cancer Screening: P ap Smear 2001 Depression Screening 09/22/2024 Colorectal Cancer Screening: Colonoscopy 04/15/2025 HIV Screening 04/15/2025 Hepatitis C Screening 04/15/2025 Social Influencers of Health Screening 04/15/2025 COVID-19 Vaccine ( - 2023-2 5 season) 2025 Influenza Vaccine (#1) 2025 RSV Immunization Adult Patie nts (1 - 1-dose 75+ series) 2055 HIB Vaccines Aged Out No longer eligi ble based on patient's age to complete this topic HPV Vaccines Aged Out No longer eligi ble based on patient's age to complete this topic Hepatitis A Vaccines Aged Out No long er eligible based on patient's age to complete this topic IPV Vaccines Aged Out No longer eligi ble based on patient's age to complete this topic MMR Vaccines Aged Out No longer eligi ble based on patient's age to complete this topic Meningococcal ACWY Vaccine Aged Out N o longer eligible based on patient's age to complete this topic Meningococcal B Vaccine Aged Out No l onger eligible based on patient's age to complete this topic Pneumococcal Vaccine: Pediat rics (0 to 5 Years) and At-Risk Patients (6 to 49 Years) Aged Out No longer eligible b ased on patient's age to complete this topic RSV Immunization Patients Un aron 20 months Aged Out No longer eligible b ased on patient's age to complete this topic Varicella Vaccines Aged Out No longer eligible based on patient's age to complete this topic Procedures Procedure Name Priority Date/Time Associated Diagnosis Comments BACTERIAL IDENTIFICATION AND SUSCEPTIBILITY, AEROBIC Routine 04/13/2025 12:00 AM EDT Pyuria from Last 3 Months Results * Bacterial identification and susceptibility, aerobic (04/13/2025 12:00 AM EDT) Culture, Bacterial ID and Sensitivity Multiple bacterial morphotypes present consistent with either contamination or urogenital alex. Suggest repeat specimen, if clinically indicated. 04/14/2025 1:26 PM EDT [facility] Other Topography unknown / Unknown 04/13/2025 04/14/2025 1:04 PM EDT us Jesi [facility] MICROBIOLOGY - GENERAL ORDER JEANNA Final Result [facility] [address] [place] [address], from Last 3 Months Insurance [facility] Care Teams Underwriting Sales Representative Relationship Specialty Start Date End Date Asia Marino NP [address] [place] [address] [address] [place] [address] PCP - General Nurse Practitioner 04/14/25
--- OUTSIDE RECORDS SUMMARY | 2025-06-21 13:17 | XMS_ITS | Clinical Summary ---
Author Organization [facility] Address [address] [address] Phone Care Team Providers Care Visual Basic .Net Developer Name Role Phone Elmer Collier MD Unavailable [phone] Lu Orozco NP Primary Care Provider [phone] Allergies Active Allergy Reactions Criticality Noted Date Comments Avocado Hives 11/25/2024 Pineapple Hives 11/25/2024 Medications albuterol sulfate (PROAIR RESPICLICK) 90 mcg/actuation AePB Inhale 2 puffs into the lungs every 4 (four) hours as needed. 09/10/2016 Active pantoprazole (PROTONIX) 40 MG tablet 1 tablet Orally once a day on an empty stomach before bedtime 09/10/2016 Active ibuprofen (ADVIL,MOTRIN) 600 MG tablet Orally As needed Active mirtazapine (REMERON) 15 MG tablet 11/15/2024 Active oxyBUTYnin (DITROPAN-XL) 5 MG 24 hr tablet Take 1 tablet by mouth every morning. 11/18/2024 Active Active Problems No known active problems Immunizations Immunization Administration Dates Next Due Hepatitis B, unspecified formulation 06/11/2004, 07/14/2001,05/12/2001 Influenza Quadrivalent Preservative Free IM 09/23 Influenza, Unspecified Formulation 07/23/2010, Tdap 06/23/2009,01/01/2007 Family History Medical History Relation Comments Diabetes mellitus Father Breast cancer Maternal Cousin Diabetes mellitus Mother Liver cancer Mother Relation Status Comments Father Alive Maternal Cousin Alive Mother Social History Tobacco Use Types Packs/Day Years Used Date Smoking Tobacco: Never Smokeless Tobacco: Never Alcohol Use Standard Drinks/Week Comments No 0 (1 standard drink = 0.6 oz pur e alcohol) Education Answer Date Recorded Are you interested in more education? Not on jaquelin e 01/17/2023 Are you concerned about learning? Not on file 01/17/2023 No 01/17/2023 No 01/17/2023 Digital Access Answer Date Recorded No 02/14/2023 No 02/14/2023 Reliable internet access at home? Not on file 02/14/2023 Device with a working camera? Not on file Comments No Sex and Gender Information Value Date Recorded Sex Assigned at Not on file Legal Sex Female 9:22 PM EDT Gender Identity Not on file Sexual Orientation Not on file Last Filed Vital Signs Vital Sign Reading Time Taken Comments Blood Pressure 102/68 11/25/2024 2:41 PM EST Pulse - - Temperature - - Respiratory Rate - - Oxygen Saturation - - Inhaled Oxygen Concentration - - Weight 50.8 kg (112 lb) 11/25/2024 2:41 PM EST Height 160 cm (5' 3 ) 11/25/2024 2:41 PM EST Body Mass Index 19.84 11/25/2024 2:41 PM EST Plan of Treatment Health Maintenance Due Date Last Done Comments LIPID PANEL 1980 DEPRESSION SCREENING 1992 HEPATITIS C SCREENING 1998 HIV ONE-TIME SCREENING (18-6 5 YEARS) 1998 MAMMOGRAM 2020 COLOGUARD 2025 COLONOSCOPY 2025 COLORECTAL CANCER SCREENING 2025 FIT TEST 2025 FOBT 2025 SIGMOIDOSCOPY 2025 VIRTUAL COLONOSCOPY 2025 INFLUENZA VACCINE (#1) 2025 9, 07/23/2010, 07/23/2010 COVID-19 VACCINE (3 2024-2 6 season) 2025 02/12/2021, 01/15/2021 PAP SMEAR 11/25/2029 11/25/2024, 03/16/2018, 03/16/2018 Adult Td,Tdap Booster 06/04/2032 06/04/2022 , 06/23/2009, 01/01/2007 SMOKING STATUS SCREENING (On ce After 26 Yrs) Completed 11/25/2024 HEPATITIS A VACCINES Aged Out No long er eligible based on patient's age to complete this topic HIB VACCINES Aged Out No longer eligi ble based on patient's age to complete this topic MENINGOCOCCAL VACCINES (ACWY) Aged Out No longer eligible based on patient's age to complete this topic MENINGOCOCCAL VACCINES (B) Aged Out N o longer eligible based on patient's age to complete this topic PNEUMOCOCCAL VACCINES (0-49 years) Aged Out No longer eligible b ased on patient's age to complete this topic Medical Devices Not on file Procedures Procedure Name Priority Date/Time Associated Diagnosis Comments PAP TEST Routine 11/25/2024 12:00 AM EST from Last 3 Months or Most Recently Relevant to Health Maintenance Results * Pap Test (11/25/2024 12:00 AM EST) 11/25/2024 11/26/2024 9:1 0 AM EST Narrative SEE NARRATIVE - 12/03/2024 10:20 [place] [address] Market Relationship Manager: Colby Anthony MD PILE OPERATOR Cytology Report FINAL DIAGNOSIS A. PAP SMEAR (THIN PREP) CE: SPECIMEN ADEQUACY: Satisfactory for evaluation; transformation zone present. INTERPRETATION: NEGATIVE FOR INTRAEPITHELIAL LESION OR MALIGNANCY. Reactive changes. Electronically Signed Out By: MD Comfort Mancini CT(ASCP) By his/her signature above, the pathologist listed as making the Final Diagnosis certifies that he/she has personally reviewed this case and confirmed or corrected the diagnosis. The Pap test is a screening test primarily for squamous cancers and precursors and has associated false-negative and false-positive results. New technologies such as liquid-based preparations may decrease but will not eliminate all false-negative results. Regular sampling and follow-up of unexplained clinical signs and symptoms are recommended to minimize false negative results. PROCEDURES/ADDENDA HPV Testing (Requested) Ordered Date: 11/26/2024 A. PAP SMEAR (THIN PREP) CE: High-risk HPV Panel w/ extended genotyping NEG HPV 16-NEG HPV 18-NEG HPV 45-NEG HPV 33/58-NEG HPV 31-NEG HPV 56/59/66-NEG HPV 51-NEG HPV 52-NEG HPV 35/39/68-NEG Performed by real-time polymerase chain reaction (PCR) at [facility], [address] [place] [address] using the FDA-approved BD Onclarity9 HPV Assay with extended genotyping. Uses of the assay in scenarios other than those approved by the FDA should be considered off-label use. The accuracy and precision of this test for all other off-label specimen sources has been verified in the Cytopathology Laboratory of the [facility] and has not been cleared or approved by the U.S. Food and Drug Administration. Clinical correlation is advised. The assay assesses the E6/E7 DNA target and utilizes human beta globin as an internal control. Cytology and HPV testing are screening assays and should not be used as the sole means of detecting cancer. False-positives and false-negatives can occur. CLINICAL HISTORY Date of Last Menstrual Period: 11-12-2024 Menstrual History: Regular Other Clinical Conditions: Screening Pap SPECIMEN SOURCE A: PAP SMEAR (THIN PREP) CE Patient Name: FRANCIS ZAMORANA : 1980 (Age: 44) Sex: F Institution: [facility] Location: [facility] Date of Collection: 11/25/2024 Date of Reported: 12/03/2024 10:20 Results to: Elmer Collier MD, BS Elmer Collier MD CYTOLOGY ORDERABLES Final Res ult SEE NARRATIVE from Last 3 Months or Most Recently Relevant to Health Maintenance Insurance [facility] [place] [address] [place] [id number] [place] [id number] [place] [address] [place] [address] [place] [address] HMO Care Teams Visual Basic .Net Developer Relationship Specialty Start Date End Date Lu Orozco NP [address] [place] [id number] PCP - General 09/25/17 Elmer Collier MD [address] [place] [phone] [email or web address] Historical LMR Provider 07/12/17 Additional Source Comments The information contained in this document represents components of the legal health record. It is not the complete legal health record.[facility]
[2025-06-21 13:19] LABS: UPreg QC Valid YES
[2025-06-21 15:27] VITALS: BP 107/61; PULSE 68; RESP 16; TEMP 36.8; O2SAT 100
== END 2025-06-21 15:28 | disposition home or self-care (01) ==
PROVIDERS: Registered Nurse Emergency; Emergency Provider Emergency Medicine
DX: M54.16 Radiculopathy, lumbar region (principal); Z03.818 Encounter for observation for suspected exposure to other biological agents ruled out
CPT/HCPCS: 72100; 81003; 81025; 87502; 87635; 96372; 99284; J1885

== ENCOUNTER → 2025-06-21 12:17 | Outpatient (BNV) | payer OTHER, SELFPAY | PROVIDERS: Emergency Provider Emergency Medicine; Visit Provider Radiology Diagnostic Radiology | DX: M54.40 Lumbago with sciatica, unspecified side (principal) | CPT/HCPCS: 72100 ==